=== PATIENT | female | born 1970 | race Caucasian/White ===

== ENCOUNTER 2018-12-04 08:59 | Emergency (ER) | payer MEDICAID ==
[~2018-12-04] VITALS: Ht 160 cm; Wt 98.4 kg
[2018-12-04 09:08] VITALS: BP_SYST 120
--- NOTE | 2018-12-04 09:20 | NUR ---
Patient to ER bed 3 to gown for evaluation. Side rails up. Report given to
--- NOTE | 2018-12-04 09:29 | NUR ---
ER Dr. Gimenez at bedside examining patient.
--- NOTE | 2018-12-04 09:31 | NUR ---
Pt complaining of right lateral ankle pain r/t amechanical fall at home. redness and swelling observed at right lateral malleolus. No complaint of SOB, n/v, or KO. Py stated she landed on her bottom and that she did not injure any other area. PT AAO x 4, speaks [place] an is cooperative.
[2018-12-04] MEDS ORDERED: IBUPROFEN 800 MG TABLET PO ONE (10:15)
[2018-12-04 10:49] VITALS: BP_SYST 124
--- NOTE | 2018-12-04 10:49 | NUR ---
Patient given written and verbal discharge instructions and verbalizes understanding. ER MD discussed with patient the results and treatment provided. Patient in stable condition. ID arm band removed. IV catheter removed intact and dressing applied, no active bleeding. Rx of [place] and motrin given. Patient educated on pain management and to follow up with PMD. Pain Scale 3/10. Opportunity for questions provided and answered. Medication side effect fact sheet provided.
== END 2018-12-04 10:49 | disposition home or self-care (01) ==
LOC: SED 08:59
DX: S82.401A Unspecified fracture of shaft of right fibula, initial encounter for closed fracture (principal); E78.5 Hyperlipidemia, unspecified; I10 Essential (primary) hypertension; Z88.2 Allergy status to sulfonamides; Z87.891 Personal history of nicotine dependence; W01.0XXA Fall on same level from slipping, tripping and stumbling without subsequent striking against object, initial encounter; Y93.31 Activity, mountain climbing, rock climbing and wall climbing; Y92.89 Other specified places as the place of occurrence of the external cause; Y99.8 Other external cause status
CPT/HCPCS: 99283